=== PATIENT | male | born 1955 ===

== ENCOUNTER 2018-01-13 03:30 | Observation (INO) | payer MEDICAID ==
[2018-01-13] MEDS ORDERED: Albuterol-Ipratrop 3 mg / 0.5 (3 ml) UD INH STA ×2 (03:49→05:52)
[2018-01-13] MEDS ORDERED: Albuterol-Ipratrop 3 mg / 0.5 (3 ml) UD ONE ×2 (04:04→06:09)
[2018-01-13 04:10] LABS: BASO # 0.1 K/uL (0.0-0.2); BASO % 0.6 % (0.0-2.0); EOS # 1.6 K/uL (0.0-0.7); EOS % 11.8 % (0.0-4.0); HEMOGLOBIN 15.1 g/dL (12.0-18.0); LYMPH # 3.5 K/uL (1.0-4.3); LYMPH % 25.7 % (20.0-40.0); MEAN CELL VOLUME 91.1 fl (80.0-94.0); MEAN CORPUSCULAR HEMOGLOBIN 30.9 pg (27.0-31.0); MEAN CORPUSCULAR HGB CONC 33.9 g/dL (33.0-37.0); MEAN PLATELET VOLUME 7.2 fl (7.2-11.7); MONO # 1.8 K/uL (0.0-0.8); NEUT # 6.6 K/uL (1.8-7.0); NEUT % 48.9 % (50.0-75.0); NRBC % 0.1 % (0.0-0.0); RBC 4.88 Mil/uL (4.40-5.90); RED CELL DISTRIBUTION WIDTH 14.1 % (11.5-14.5); WHITE BLOOD COUNT 13.5 K/uL (4.8-10.8)
[2018-01-13 04:17] LABS: ALB/GLOB RATIO 1.1 (1.0-2.1); ALBUMIN 4.5 g/dL (3.5-5.0); ALT/SGPT 25 U/L (21-72); AST/SGOT 44 U/L (17-59); BLOOD UREA NITROGEN 21 mg/dl (9-20); CALCIUM 9.3 mg/dL (8.4-10.2); GFR AFRICAN-AMERICAN > 60; GFR NON-AFRICAN AMERICAN > 60
--- NOTE | 2018-01-13 04:46 | ED PDOC ---
HPI: SOB/CHF/COPD Time Seen by Provider: 01/13/18 03:35 Chief Complaint (Nursing): Respiratory Distress Chief Complaint (Provider): Shortness of Breath History Per: Patient History/Exam Limitations: no limitations Onset/Duration Of Symptoms: Hrs Current Symptoms Are (Timing): Still Present Quality: "Pain" Additional History Per: EMS, Family Additional Complaint(s): 62 year old male with a past medical history of COPD and HTN was brought the ED via EMS for an evaluation of shortness of breath one hour prior to arrival. As per paramedics, 3 Albuterols, 1 Atrocent, .25mg of Brethine, 125mg solumedrol and 2gm of magnesium sulfate given prior to arrival. Upon arrival, patient had albuterol treatment in progress. As per , patient called her and told her he has difficulty breathing and was wheezing. Denies fever, cough or leg pain. PMD: Radha Cardenas Past Medical History Reviewed: Historical Data, Nursing Documentation, Vital Signs Vital Signs: Last Vital Signs Temp 98.6 F 01/13/18 15:42 Pulse 99 H 01/13/18 15:42 Resp 18 01/13/18 15:42 BP 130/64 01/13/18 15:42 Pulse Ox 99 01/13/18 21:06 - Medical History PMH: COPD, HTN - Surgical History Surgical History: No Surg Hx - Family History Family History: States: Unknown Family Hx - Social History Current smoker - smoking cessation education provided: Yes Drugs: Denies - Home Medications Home Medications: Ambulatory Orders Medication Instructions Recorded Albuterol/Ipratropium [Combivent 2 puff IH Q4 PRN #1 inhaler 01/13/18 Respimat] Albuterol/Ipratropium [Duoneb 3 3 ml INH RQ4 PRN #100 neb 01/13/18 mg/0.5 mg (3 ml) UD] Cetirizine HCl [All Day Allergy 10 mg PO DAILY 01/13/18 Relief] Fluticasone/Salmeterol [Advair 1 each IH BID PRN 01/13/18 250-50 Diskus] Losartan [Cozaar] 50 mg PO DAILY #30 tab 01/13/18 Methylprednisolone [Medrol Dose 4 mg PO ASDIR #21 mg 01/13/18 Pack (21 tabs)] Tiotropium Morley Inhaler 18 mcg INH DAILY 01/13/18 [Spiriva Inhalation Handihaler Device] - Allergies Allergies/Adverse Reactions: Allergies Allergy/AdvReac Type Severity Reaction Status Date / Time No Known Allergies Allergy Verified 01/13/18 03:33 Curb-65 Severity Score - CURB-65 Severity Score Confusion: No Bun >19mg/dl (>7mmol/L): No Respiratory Rate greater than/equal to 30: No Systolic BP <90 or Diastolic BP less than/equal 60mmHg: No Age >64: No Curb-65 Score: 0 Percentage 30-day mortality: 0.6% Wells Criteria for PE - Wells Criteria for Pulmonary Embolism Clinical Signs and Symptoms of DVT: No P.E is #1 Diagnosis, or Equally Likely: No Heart Rate >100: No Immobilization at least 3 days;Surgery previous 4 weeks: No Previous, objectively diagnosed PE or DVT: No Hemoptysis: No Malignancy w/treatment within 6 months, or palliative: No Total Score: 0 Review of Systems ROS Statement: Except As Marked, All Systems Reviewed And Found Negative Constitutional: Negative for: Fever Respiratory: Positive for: Shortness of Breath, Wheezing. Negative for: Cough Musculoskeletal: Negative for: Leg Pain Physical Exam - Reviewed Nursing Documentation Reviewed: Yes Vital Signs Reviewed: Yes - Physical Exam Appears: Positive for: Uncomfortable (tachypneic on NRB) Head Exam: Positive for: ATRAUMATIC, NORMAL INSPECTION, NORMOCEPHALIC Skin: Positive for: Normal Color, Warm, Dry Eye Exam: Positive for: Normal appearance, EOMI, PERRL ENT: Positive for: Normal ENT Inspection Neck: Positive for: Normal, Painless ROM, Supple. Negative for: Decreased ROM Cardiovascular/Chest: Positive for: Regular Rate, Rhythm. Negative for: Murmur Respiratory: Positive for: Decreased Breath Sounds, Accessory Muscle Use, Rhonchi, Respiratory Distress (mild). Negative for: Wheezing Gastrointestinal/Abdominal: Positive for: Normal Exam, Bowel Sounds, Soft. Negative for: Tenderness, Guarding, Rebound Back: Positive for: Normal Inspection Extremity: Positive for: Normal ROM. Negative for: Pedal Edema, Calf Tenderness Neurologic/Psych: Positive for: Alert, Oriented (x3). 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 likely copd exac. Time: 618 Spoke to hospitalist regarding admission. dr nicole accepted (pts dr not affiliated here) Scribe Attestation: Documented by Abdulaziz Arana, acting as a scribe for Delia Hebert MD Provider Scribe Attestation: All medical record entries made by the Scribe were at my direction and personally dictated by me. I have reviewed the chart and agree that the record accurately reflects my personal performance of the history, physical exam, medical decision making, and the department course for this patient. I have also personally directed, reviewed, and agree with the discharge instructions and disposition. Disposition - Clinical Impression Clinical Impression: Moderate COPD (chronic obstructive pulmonary disease) - Patient ED Disposition Is Patient to be Admitted: Yes Counseled Patient/Family Regarding: Diagnosis - Disposition Disposition Time: 06:00 Condition: STABLE
[2018-01-13] MEDS ORDERED: Potassium Chloride 20 mEq ER Tab PO ONE ×2 (05:46→06:09)
[2018-01-13] MEDS: Albuterol-Ipratrop 3 mg / 0.5 (3 ml) UD INH SCH ×4 (08:00→19:57)
--- NOTE | 2018-01-13 08:30 | CP.PCM.HP ---
History of Present Illness - History of Present Illness History of Present Illness: Chief Complaint : SOB HPI: 62 y/o gent with hx of COPD, HTN, was brought in because of SOB. Pt is a smoker , smokes 1/2 pack per day and is on Sppiriva and Advair for his COPD. At around [place], the patient started to have some wheezing. This wheezing worsened and he became very dyspneic. He denies cough, no fever nor chills. Due to the persistence and worsening of his symptoms , he called 911 . He received Duoneb treatments and IV Solumedrol enroute to the ED. Present on Admission - Present on Admission Any Indicators Present on Admission: No Review of Systems - Review of Systems All systems: reviewed and no additional remarkable complaints except - Constitutional Constitutional: absent: Chills, Fever - EENT Eyes: absent: Blurred Vision, Change in Vision, Diplopia Ears: absent: Decreased Hearing, Ear Discharge, Ear Pain Nose/Mouth/Throat: absent: Nasal Congestion, Nasal Discharge, Post Nasal Drip - Cardiovascular Cardiovascular: Dyspnea. absent: Chest Pain, Chest Pain at Rest, Diaphoresis, Pain Radiating to Arm/Neck/Jaw - Respiratory Respiratory: Dyspnea, Wheezing. absent: Cough, Hemoptysis, Dyspnea on Exertion , Excessive Mucous Production - Gastrointestinal Gastrointestinal: absent: Abdominal Pain, Nausea, Vomiting - Genitourinary Genitourinary: absent: Change in Urinary Stream, Difficulty Urinating, Dysuria, Hematuria - Musculoskeletal Musculoskeletal: absent: Abnormal Gait, Arthralgias, Back Pain - Integumentary Integumentary: absent: Pruritus, Rash, Skin Ulcer - Neurological Neurological: absent: Abnormal Gait, Focal Weakness, Loss of Vision - Psychiatric Psychiatric: absent: Anxiety, Depression, Suicidal Ideation - Endocrine Endocrine: absent: Polydipsia, Polyphagia, Polyuria - Hematologic/Lymphatic Hematologic: absent: Easy Bleeding, Easy Bruising Past Patient History - Infectious Disease Hx of Infectious Diseases: None - Tetanus Immunizations Tetanus Immunization: Unknown - Past Medical History & Family History Past Medical History?: Yes Past Family History: Reviewed and not pertinent - Past Social History Smoking Status: Light Smoker < 10 Cigarettes Daily Alcohol: None Drugs: Denies Home Situation {Lives}: With Family Domestic Violence: Negative - CARDIAC Hx Cardiac Disorders: Yes Hx Hypertension: Yes - PULMONARY Hx Respiratory Disorders: Yes Hx Chronic Obstructive Pulmonary Disease (COPD): Yes - NEUROLOGICAL Hx Neurological Disorder: No - HEENT Hx HEENT Problems: No - RENAL Hx Chronic Kidney Disease: No - ENDOCRINE/METABOLIC Hx Endocrine Disorders: No - HEMATOLOGICAL/ONCOLOGICAL Hx Blood Disorders: No - INTEGUMENTARY Hx Dermatological Problems: No - MUSCULOSKELETAL/RHEUMATOLOGICAL Hx Musculoskeletal Disorders: No - GASTROINTESTINAL Hx Gastrointestinal Disorders: No - GENITOURINARY/GYNECOLOGICAL Hx Genitourinary Disorders: No - PSYCHIATRIC Hx Psychophysiologic Disorder: No Hx Substance Use: No - SURGICAL HISTORY Hx Surgeries: No - ANESTHESIA Hx Anesthesia: No Meds Allergies/Adverse Reactions: Allergies Allergy/AdvReac Type Severity Reaction Status Date / Time No Known Allergies Allergy Verified 01/13/18 03:33 Physical Exam - Constitutional Appears: Non-toxic, No Acute Distress - Head Exam Head Exam: ATRAUMATIC, NORMAL INSPECTION, NORMOCEPHALIC - Eye Exam Eye Exam: EOMI, Normal appearance, PERRL Pupil Exam: NORMAL ACCOMODATION - ENT Exam ENT Exam: Mucous Membranes Moist, Normal External Ear Exam - Neck Exam Neck exam: Positive for: Full Rom. Negative for: Meningismus - Respiratory Exam Respiratory Exam: Wheezes. absent: Rales, Rhonchi, Respiratory Distress - Cardiovascular Exam Cardiovascular Exam: REGULAR RHYTHM, +S1, +S2 - GI/Abdominal Exam GI & Abdominal Exam: Normal Bowel Sounds, Soft. absent: Tenderness - Extremities Exam Extremities exam: Positive for: full ROM, normal capillary refill, normal inspection, pedal pulses present. Negative for: calf tenderness, pedal edema - Back Exam Back exam: FULL ROM. absent: CVA tenderness (L), CVA tenderness (R), vertebral tenderness - Neurological Exam Neurological exam: Alert, CN II-XII Intact, Oriented x3, Reflexes Normal - Psychiatric Exam Psychiatric exam: Normal Affect, Normal Mood - Skin Skin Exam: Dry, Normal Color, Warm Results - Vital Signs Recent Vital Signs: Last Vital Signs Temp 97.5 F L 01/13/18 04:08 Pulse 84 01/13/18 07:41 Resp 16 01/13/18 07:41 BP 136/63 01/13/18 07:41 Pulse Ox 96 01/13/18 06:30 - Labs Result Diagrams: 01/13/18 00:45 01/13/18 00:45 Labs: Laboratory Results - last 24 hr 01/13/18 01/13/18 01/13/18 00:45 00:45 06:00 WBC 13.5 H RBC 4.88 Hgb 15.1 Hct 44.5 MCV 91.1 MCH 30.9 MCHC 33.9 RDW 14.1 Plt Count 302 MPV 7.2 Neut % (Auto) 48.9 L Lymph % (Auto) 25.7 [place] % (Auto) 13.0 H Eos % (Auto) 11.8 H Baso % (Auto) 0.6 Neut # (Auto) 6.6 Lymph # (Auto) 3.5 [place] # (Auto) 1.8 H Eos # (Auto) 1.6 H Baso # (Auto) 0.1 Sodium 141 Potassium 3.1 L Chloride 94 L Carbon Dioxide 32 H Anion Gap 18 BUN 21 H Creatinine 0.8 Est GFR ( Amer) > 60 Est GFR (Non-Af Amer) > 60 Random Glucose 177 H Calcium 9.3 Total Bilirubin 0.7 AST 44 ALT 25 Alkaline Phosphatase 103 Troponin I < 0.0120 NT-Pro-B Natriuret Pep 69.1 Total Protein 8.7 H Albumin 4.5 Globulin 4.2 H Albumin/Globulin Ratio 1.1 Assessment & Plan (1) COPD exacerbation Status: Acute (2) HTN (hypertension) Status: Acute - Assessment and Plan (Free Text) Assessment: (1) COPD exacerbation Status: Acute Observe pt in Tele start IV Solumedrol Duoneb RTC and prn cont Advair and Spiriva Counseled to d/c smoking (2) HTN (hypertension) Status: Acute d/c HCTZ start Losartan 3. Hypokalemia - replace with PO KCl Decision To Admit - Pt Status Changed To: Hospital Disposition Of: Observation - . Bed Request Type: Telemetry Admitting Physician: Summer Archibald
[2018-01-13] MEDS ORDERED: Albuterol-Ipratrop 3 mg / 0.5 (3 ml) UD INH PRN (08:48)
[2018-01-13] MEDS ORDERED: Fluticasone-Salmeterol 250-50mcg Diskus IH PRN (08:50)
--- NOTE | 2018-01-13 09:44 | RAD ---
Date of service: 01/13/2018 HISTORY: chest pain COMPARISON: Chest radiographs 03/05/2010. FINDINGS: LUNGS: Extensive COPD is reiterated if not increased. Increased density seen at the right hilar region with nodular thickening of the right upper lobe noted laterally, pleural-based. Tenting of the left hemidiaphragm root is appreciated, borderline on the right on the basis of pulmonary fibrosis. PLEURA: Pleural base mass question right apex laterally. Blunting the left costophrenic sulcus is felt to be fibrotic basis rather than effusion though trace effusion not excluded. CARDIOVASCULAR: Normal. OSSEOUS STRUCTURES: No significant abnormalities. VISUALIZED UPPER ABDOMEN: Normal. OTHER FINDINGS: None. IMPRESSION: COPD with increase pulmonary fibrosis. Increased right hilar density as well as nodular pleural-based density at the right apex noted laterally may be on the basis of interval neoplasm and follow-up chest CT with intravenous contrast is advised unless there is a contraindication. Underlying airspace disease in the right upper lobe is not excluded.
[2018-01-13] MEDS ORDERED: methylPREDNISolone 40 MG in Sodium Chloride 0.9% 50 ML IVPB SCH (10:00)
[2018-01-13] MEDS: MethylPREDNISolone 40 mg Vial IVP SCH ×3 (10:44→22:05)
[2018-01-13] MEDS: Tiotropium 18 mcg Cap For Inhalation INH SCH (10:45)
[2018-01-13 16:20] LABS: BLOOD UREA NITROGEN 18 mg/dl (9-20); CALCIUM 8.9 mg/dL (8.4-10.2); GFR AFRICAN-AMERICAN > 60; GFR NON-AFRICAN AMERICAN > 60
[2018-01-13] MEDS ORDERED: Azithromycin 500 MG in Sodium Chloride 0.9% 250 ML IVPB STA (17:39)
[2018-01-13] MEDS: Fluticasone-Salmeterol 250-50mcg Diskus IH SCH (18:27)
[2018-01-14] MEDS: MethylPREDNISolone 40 mg Vial IVP SCH ×2 (04:27→09:19)
[2018-01-14] MEDS: Albuterol-Ipratrop 3 mg / 0.5 (3 ml) UD INH SCH ×3 (08:01→16:06)
[2018-01-14] MEDS ORDERED: Pneumococcal 23-Valent Vaccine IM ONE (08:10)
[2018-01-14] MEDS: Fluticasone-Salmeterol 250-50mcg Diskus IH SCH (08:41)
[2018-01-14] MEDS: Tiotropium 18 mcg Cap For Inhalation INH SCH (08:46)
[2018-01-14] MEDS ORDERED: Sodium Chloride 0.9% 50 ML IV ONE (10:11)
[2018-01-14] MEDS ORDERED: Iohexol 300 100 ML IJ ONE (10:11)
--- NOTE | 2018-01-14 11:24 | CT ---
Date of service: 01/14/2018 PROCEDURE: CT Chest with contrast HISTORY: lung density COMPARISON: January 13, 2018. Single-view chest. 03/06/2010 CT thorax. TECHNIQUE: Contiguous axial images were obtained through the chest with intravenous contrast enhancement. Sagittal and coronal reconstructions were performed. IV contrast: 85 cc Omnipaque 300. Radiation dose (DLP): 433.71 mGy-cm. This CT exam was performed using one or more of the following dose reduction techniques: Automated exposure control, adjustment of the mA and/or kV according to patient size, and/or use of iterative reconstruction technique. FINDINGS: LUNGS: Multiple masses in the right upper lobe the largest laterally and in the apical aspect of the right upper lobe measures 2.6 x 6.2 x 3.2 cm. The findings are suspicious for invasion of the pleura and perhaps chest wall/ adjacent rib. Additional smaller multinodular findings identified in the right upper lobe. Underlying bullous change, severe emphysematous changes identified bilaterally. These were seen an are approximately stable compared to the prior study. MEDIASTINUM: Unremarkable thoracic aorta. No aneurysm or dissection. Normal sized heart. Main pulmonary artery unremarkable. No vascular congestion. Significant mediastinal and right hilar adenopathy identified with circumferential narrowing of segmental bronchi left upper lobe resulting in a component of volume loss, postobstructive pneumonitis. The mass and develops in the right main pulmonary artery. Adjacent subcarinal and mediastinal adenopathy noted. Bulky tumor mass measures approximately 5.2 x 5.4 cm. PLEURA: No pleural fluid. No pneumothorax. BONES: Extensive tumor in the in the right upper lobe, right hilum and mediastinum described in greater detail above. No evidence of tumor in the contralateral lung or visualized upper abdomen. UPPER ABDOMEN: Grossly unremarkable. OTHER FINDINGS: None. IMPRESSION: Unremarkable contrast enhanced CT of the chest.
--- NOTE | 2018-01-14 15:00 | CP.PCM.DIS ---
Provider - Provider Date of Admission: 01/13/18 06:21 Attending physician: Geremias Peters Primary care physician: Dr Cardenas Consults: Pulm: Dr Joy Time Spent in preparation of Discharge (in minutes): 40 Diagnosis - Discharge Diagnosis (1) Lung mass Status: Acute (2) COPD exacerbation Status: Acute (3) HTN (hypertension) Status: Chronic (4) Postobstructive pneumonia Status: Acute (5) Hypokalemia Status: Acute Hospital Course - Lab Results Lab Results: Most Recent Lab Values WBC 13.5 K/uL (4.8-10.8) H 01/13/18 00:45 RBC 4.88 Mil/uL (4.40-5.90) 01/13/18 00:45 Hgb 15.1 g/dL (12.0-18.0) 01/13/18 00:45 Hct 44.5 % (35.0-51.0) 01/13/18 00:45 MCV 91.1 fl (80.0-94.0) 01/13/18 00:45 MCH 30.9 pg (27.0-31.0) 01/13/18 00:45 MCHC 33.9 g/dL (33.0-37.0) 01/13/18 00:45 RDW 14.1 % (11.5-14.5) 01/13/18 00:45 Plt Count 302 K/uL (130-400) 01/13/18 00:45 MPV 7.2 fl (7.2-11.7) 01/13/18 00:45 Neut % (Auto) 48.9 % (50.0-75.0) L 01/13/18 00:45 Lymph % (Auto) 25.7 % (20.0-40.0) 01/13/18 00:45 [place] % (Auto) 13.0 % (0.0-10.0) H 01/13/18 00:45 Eos % (Auto) 11.8 % (0.0-4.0) H 01/13/18 00:45 Baso % (Auto) 0.6 % (0.0-2.0) 01/13/18 00:45 Neut # (Auto) 6.6 K/uL (1.8-7.0) 08/06/18 00:45 Lymph # (Auto) 3.5 K/uL (1.0-4.3) 01/13/18 00:45 [place] # (Auto) 1.8 K/uL (0.0-0.8) H 01/13/18 00:45 Eos # (Auto) 1.6 K/uL (0.0-0.7) H 01/13/18 00:45 Baso # (Auto) 0.1 K/uL (0.0-0.2) 01/13/18 00:45 Sodium 136 mmol/l (132-148) 01/13/18 15:30 Potassium 3.6 MMOL/L (3.6-5.0) 01/13/18 15:30 Chloride 93 mmol/L (98-107) L 01/13/18 15:30 Carbon Dioxide 27 mmol/L (22-30) 01/13/18 15:30 Anion Gap 20 (10-20) 01/13/18 15:30 BUN 18 mg/dl (9-20) 01/13/18 15:30 Creatinine 0.8 mg/dl (0.8-1.5) 01/13/18 15:30 Est GFR ( Amer) > 60 08 15:30 Est GFR (Non-Af Amer) > 60 01/13/18 15:30 Random Glucose 262 mg/dL (75-110) H 01/13/18 15:30 Calcium 8.9 mg/dL (8.4-10.2) 01/13/18 15:30 Total Bilirubin 0.7 mg/dl (0.2-1.3) 01/13/18 00:45 AST 44 U/L (17-59) 01/13/18 00:45 ALT 25 U/L (21-72) 01/13/18 00:45 Alkaline Phosphatase 103 U/L (38-126) 01/13/18 00:45 Troponin I < 0.0120 ng/mL (0.00-0.120) 01/13/18 15:30 NT-Pro-B Natriuret Pep 69.1 pg/ml (0-900) 01/13/18 06:00 Total Protein 8.7 G/DL (6.3-8.2) H 01/13/18 00:45 Albumin 4.5 g/dL (3.5-5.0) 01/13/18 00:45 Globulin 4.2 gm/dL (2.2-3.9) H 01/13/18 00:45 Albumin/Globulin Ratio 1.1 (1.0-2.1) 01/13/18 00:45 - Hospital Course Hospital Course: 62 y/o gent with hx of COPD, HTN, was brought in because of SOB. Pt is a smoker , smokes 1/2 pack per day and is on Spiriva and Advair for his COPD. At around [place], the patient started to have some wheezing. This wheezing worsened and he became very dyspneic. He denies cough, no fever nor chills. Due to the persistence and worsening of his symptoms , he called 911 . He received Duoneb treatments and IV Solumedrol enroute to the ED. CXR : COPD with increase pulmonary fibrosis. Increased right hilar density as well as nodular pleural-based density at the right apex noted laterally may be on the basis of interval neoplasm and follow-up chest CT with intravenous contrast is advised unless there is a contraindication. Underlying airspace disease in the right upper lobe is not excluded. CT of the [facility] with contrast: LUNGS: Multiple masses in the right upper lobe the largest laterally and in the apical aspect of the right upper lobe measures 2.6 x 6.2 x 3.2 cm. The findings are suspicious for invasion of the pleura and perhaps chest wall/ adjacent rib. Additional smaller multinodular findings identified in the right upper lobe. Underlying bullous change, severe emphysematous changes identified bilaterally. These were seen an are approximately stable compared to the prior study. MEDIASTINUM: Unremarkable thoracic aorta. No aneurysm or dissection. Normal sized heart. Main pulmonary artery unremarkable. No vascular congestion. Significant mediastinal and right hilar adenopathy identified with circumferential narrowing of segmental bronchi left upper lobe resulting in a component of volume loss, postobstructive pneumonitis. The mass and develops in the right main pulmonary artery. Adjacent subcarinal and mediastinal adenopathy noted. Bulky tumor mass measures approximately 5.2 x 5.4 cm. PLEURA: No pleural fluid. No pneumothorax. BONES: Extensive tumor in the in the right upper lobe, right hilum and mediastinum described in greater detail above. No evidence of tumor in the contralateral lung or visualized upper abdomen. 1. Multiple Lung Nodules likely malignancy Pulmonary consulted - discussed case with Dr Joy - rec biopsy Pt refused to stay and have work up done in the hospital - had long discussion rec need to have biopsy done , that mass is likely malignant - Pt and his verbalized understanding of discussion. ff up with Dr Benita drake as outpt (2) COPD exacerbation Status: Acute started IV Solumedrol- will change to PO Medrol Duoneb RTC and prn cont Advair and Spiriva Counseled to d/c smoking Pt is feeling better - saturation on RA 96%, wheezing very much improved 3. Post obstructive Pneumonitis ( POA) Pt received IV Ceftriaxone and Azithro will d/c home on 7 days of PO Levaquin (4) HTN (hypertension) Status: Acute d/c HCTZ started Losartan 5. Hypokalemia sec to diuretics - replaced with PO KCl Discharge Exam - Head Exam Head Exam: ATRAUMATIC, NORMAL INSPECTION, NORMOCEPHALIC - Eye Exam Eye Exam: EOMI, Normal appearance, PERRL Pupil Exam: NORMAL ACCOMODATION - ENT Exam ENT Exam: Mucous Membranes Moist, Normal External Ear Exam - Neck Exam Neck exam: Full Rom - Respiratory Exam Respiratory Exam: Rhonchi, Wheezes, NORMAL BREATHING PATTERN. absent: Respiratory Distress - Cardiovascular Exam Cardiovascular Exam: REGULAR RHYTHM, +S1, +S2 - GI/Abdominal Exam GI & Abdominal Exam: Normal Bowel Sounds, Soft. absent: Tenderness - Extremities Exam Extremities exam: full ROM, normal capillary refill, pedal pulses present - Back Exam Back exam: FULL ROM. absent: CVA tenderness (L), CVA tenderness (R) - Neurological Exam Neurological exam: Alert, CN II-XII Intact, Normal Gait, Oriented x3, Reflexes Normal - Psychiatric Exam Psychiatric exam: Normal Affect, Normal Mood - Skin Skin Exam: Dry, Normal Color, Warm Discharge Plan - Discharge Medications Prescriptions: Albuterol/Ipratropium [Combivent Respimat] 2 puff IH Q4 PRN #1 inhaler PRN Reason: Wheezing Albuterol/Ipratropium [Duoneb 3 mg/0.5 mg (3 ml) UD] 3 ml INH RQ4 PRN #100 neb PRN Reason: Shortness Of Breath Levofloxacin [Levaquin] 500 mg PO DAILY #7 tablet Losartan [Cozaar] 50 mg PO DAILY #30 tab Methylprednisolone [Medrol Dose Pack (21 tabs)] 4 mg PO ASDIR #21 mg - Follow Up Plan Condition: IMPROVED Disposition: HOME/ ROUTINE Additional Instructions: ff up with Dr Benita drake You will need Lung biopsy noelle ff up with Dr Ronald drake Referrals: Radha Cardenas MD [Medical Doctor] - Dimas Joy MD [Staff Provider] -
[2018-01-14 16:00] VITALS: BP 109/56; PULSE 95; RESP 18; TEMP 97.7; O2SAT 95
== END 2018-01-14 16:30 | disposition home or self-care (01) ==
LOC: H.ER 03:30 → H.ERHOLD 06:21 → INTOOBSV 06:21 → H.TEL 09:13
PROVIDERS: ADMIT Internal Medicine; ATTEND Internal Medicine
DX: J44.1 Chronic obstructive pulmonary disease with (acute) exacerbation (principal); J18.9 Pneumonia, unspecified organism; J44.0 Chronic obstructive pulmonary disease with (acute) lower respiratory infection; I10 Essential (primary) hypertension; E87.6 Hypokalemia; J84.10 Pulmonary fibrosis, unspecified; R91.8 Other nonspecific abnormal finding of lung field; F17.210 Nicotine dependence, cigarettes, uncomplicated
CPT/HCPCS: 71045; 71260; 80048; 80053; 83880; 84484; 85025; 94640; 99285; G0378; J0456; J0696; J2920; Q9967